=== PATIENT | female | born 1985 | race Caucasian/White ===

== ENCOUNTER 2016-06-20 09:24 | Emergency (ER) | payer OTHER ==
[~2016-06-20] VITALS: Ht 160 cm; Wt 77.5 kg
[~2016-06-20 09:24] MED LIST: ACET1TAB40 PO; ALBU18HF INHALATION; CEPH-443 PO; CIPR500T4 PO; CYCL-319 PO; D-ME473S18 PO; ESOM40CA PO; GUAI-637 PO; HOMATROPINE PO; HYDR-3498 PO; HYDROCODONE PO; IBUP-1542 PO; IBUP800T25 PO; NAPR-260 PO; NPH10OT LEFT EAR; OXYC-281 PO; SODI44SP11 NASAL; TAMS-14 PO; TRAM50TA2 PO
[2016-06-20 09:30] VITALS: Ht 160 cm; Wt 77.5 kg
[2016-06-20] MEDS ORDERED: AMO500 PO (09:47)
[2016-06-20] MEDS ORDERED: NAPR-688 PO (09:48)
[2016-06-20] MEDS ORDERED: CIPR7.5D4 LEFT EAR (09:48)
--- NOTE | 2016-06-20 09:55 | ERD ---
ER Documentation Chief Complaint Date/Time DATE: 06/20/16 TIME: 09:50 Chief Complaint LEFT EAR PAIN HPI This is a 30-year-old female presents to the ER with left ear pain that started yesterday. Pain is severe and constant and does not allow patient to sleep. Patient denies any discharge from the ER. She does admit to fever last night. She denies any cough or cold symptoms. She denies any recent dental work. She denies any facial pain or facial numbness or weakness. ROS 12 point review of systems was done, all negative except per HPI. Medications Home Meds Active Scripts Naproxen* (Naproxen*) 500 Mg Tablet, 500 MG PO BID Y for PAIN for 5 Days, TAB Prov:DARÍO BUENROSTRO 06/20/16 Ciprofloxacin Hcl/Dexameth (Ciprodex Otic Suspension) 7.5 Ml Drops.susp, 4 DROP LEFT EAR BID for 7 Days, EA Prov:DARÍO BUENROSTRO 06/20/16 Amoxicillin* (Amoxicillin*) 500 Mg Cap, 500 MG PO BID for 10 Days, CAP Prov:DARÍO BUENROSTRO 06/20/16 Dextromethorphan Hb-Promethazine Hcl (Promethazine DM Syrup) 473 Ml Syrup, 5 ML PO Q6H Y for COUGH, #4 OZ Prov:YORDY GRIGGS PA-C 03/03/16 Ibuprofen* (Motrin*) 600 Mg Tab, 600 MG PO Q6, #30 TAB Prov:YORDY GRIGGS PA-C 03/03/16 Ibuprofen* (Motrin*) 800 Mg Tab, 800 MG PO Q6H Y for PAIN, #30 TAB Prov:LUCILLE BOSE MD 12/19/15 [Hycodan 1.5mg/5mL] No Conflict Check, 5 ML PO Q6 Y for COUGH, #8 OZ Prov:LUCILLE BOSE MD 12/19/15 Albuterol Sulfate* (Ventolin HFA*) 18 Gm Hfa.aer.ad, 2 PUFF INHALATION Q4H, #1 INHALER Prov:LUCILLE BOSE MD 12/19/15 Cephalexin* (Keflex*) 500 Mg Capsule, 500 MG PO QID for 5 Days, CAP Prov:TREY STUART MD 10/20/15 Ibuprofen* (Motrin*) 600 Mg Tab, 600 MG PO Q6, #16 TAB Prov:TREY STUART MD 10/20/15 Cephalexin* (Keflex*) 500 Mg Capsule, 500 MG PO QID, #28 CAP Prov:TREY STUART MD 09/29/15 Acetaminophen-Codeine* (Acetaminophen-Cod #3*) 300-30 Mg Tab, 1 TAB PO Q4H Y for PAIN, #14 TAB Prov:TREY STUART MD 09/29/15 Neomycin/Polymyxin/Hydrocort* (Cortisporin* Otic) 10 Ml Susp, 4 DROP LEFT EAR QID for 7 Days, EA Prov:TREY STUART MD 09/29/15 Tramadol HCl (Tramadol HCl) 50 Mg Tablet, 50 MG PO Q4 Y for PAIN, #20 TAB Prov:RANDA BYNUM PA-C 09/16/15 Hydrocodone Bit-Acetaminophen* (Magnolia*) 5-325 Mg Tab, 1 TAB PO Q6 Y for PAIN, # 7 TAB Prov:YORDY GRIGGS PA-C 06/30/15 Ciprofloxacin Hcl* (Ciprofloxacin Hcl*) 500 Mg Tablet, 500 MG PO BID for 7 Days , TAB Prov:YORDY GRIGGS PA-C 06/30/15 Sodium Chloride (Saline Nasal Liberty) 45 Ml Liberty, 2 SPRAYS NASAL Q2H Y for NASAL CONGESTION, #1 BOTTLE Prov:CHAYO KEANE NP 04/29/15 Guaifenesin* (Robitussin*) 100 Mg/5 Ml Syrup, 100 MG PO Q4H Y for COUGH, #120 ML Prov:CHAYO KEANE NP 04/29/15 Cyclobenzaprine Hcl* (Cyclobenzaprine Hcl*) 10 Mg Tablet, 10 MG PO TID, #15 TAB Prov:CHAYO KEANE NP 04/29/15 Ibuprofen* (Motrin*) 800 Mg Tab, 800 MG PO Q6H Y for PAIN AND OR ELEVATED TEMP, #30 TAB Prov:CHAYO KEANE NP 04/29/15 Ibuprofen* (Motrin*) 600 Mg Tab, 600 MG PO Q6H Y for PAIN AND OR ELEVATED TEMP, #30 Prov:ELIO ZULUAGA 10/22/14 Cephalexin* (Keflex*) 500 Mg Capsule, 500 MG PO TID for 5 Days, CAP Prov:YEFRI ISRAEL PA-C 09/07/14 Tamsulosin Hcl* (Flomax*) 0.4 Mg Cap.er.24h, 0.4 MG PO QPM, #30 CAP Prov:YEFRI ISRAEL PA-C 09/07/14 Naproxen* (Naprosyn*) 500 Mg Tablet, 500 MG PO BID for PAIN, #30 TAB Prov:GIDEON JEFRFEY MD 09/05/14 Ciprofloxacin Hcl* (Ciprofloxacin Hcl*) 500 Mg Tablet, 500 MG PO BID for 5 Days , TAB Prov:GIDEON JEFFREY MD 09/05/14 Oxycodone Hcl-Acetaminophen* (Percocet*) 5-325 Mg Tablet, 1 TAB PO Q4H Y for PAIN, #14 TAB Prov:GIDEON JEFFREY MD 09/05/14 Reported Medications Esomeprazole Mag Trihydrate (Nexium) 40 Mg Capsule.dr, 40 MG PO DAILY, CAP 09/05/14 Allergies Allergies: Coded Allergies: No Known Allergy (Unverified , 12/19/15) PMhx/Soc History of Surgery: No Anesthesia Reaction: No Hx Neurological Disorder: No Hx Respiratory Disorders: No Hx Cardiac Disorders: No Hx Psychiatric Problems: No Hx Miscellaneous Medical Probl: No Hx Alcohol Use: No Hx Substance Use: No Hx Tobacco Use: No Physical Exam Vitals Vital Signs Date Time Temp Pulse Resp B/P Pulse Ox O2 Delivery O2 Flow Rate FiO2 06/20/16 09:30 98.2 79 18 147/97 98 Physical Exam GENERAL: The patient is well developed and appropriate for usual state of health , in no apparent distress. HEENT: Atraumatic. Conjunctivae are pink. Pupils equal, round, and reactive to light. Extraocular muscles are grossly intact. left external ear canal is erythematous. TTP over the tragus. The oropharynx is clear with no erythema or exudates. CHEST: Clear to auscultation bilaterally. There are no rales, wheezes or rhonchi. HEART: Regular rate and rhythm. No murmurs, clicks, rubs or gallops. NEURO: Alert and oriented. Results 24 hrs Current Medications Medications (Trade) Dose Ordered Sig/Carmelina Route PRN Reason Start Time Stop Time Status Last Admin Dose Admin Acetaminophen/ Hydrocodone Bitart (Magnolia (5/325)) 1 tab ONCE ONCE PO 06/20/16 10:00 06/20/16 10:01 06/20/16 09:49 Procedures/MDM This is a 30-year-old female presents to the ER with left ear pain. Patient may have otitis externa, external auditory canal is erythematous and patient had tender to palpation over the tragus. Suspicion for referred dental pain is low. I doubt TMJ patient did not have any facial pain I doubt trigeminal neuralgia. I doubt Dutton Palsy, she does not have any facial asymmetries. Patient will be sent home with Naproxen, Amoxicillin and Cortisporin. Patient needs to follow-up with her primary care doctor within 1-2 days or return to ER sooner if symptoms worsen. My medical decision making was shared with the patient she understands and agrees with plan. Departure Diagnosis: Primary Impression: Left ear pain Condition: Stable Patient Instructions: External Ear Infection (Adult) Additional Instructions: Llame al doctor EZ y evelyn david KENDALL PARA DENTRO DE 1-2 CARRION.Dgale a la secretaria que nosotros le instruimos hacer esta kendall.Avise o llame si salas condicin se empeora antes de la kendall. Regresa aqui si peor o no mejor. DARÍO BUENROSTRO Jun 20, 2016 09:55
[2016-06-20] MEDS ORDERED: HYDROCODONE/APAP (5/325) TAB PO ONE (10:00)
== END 2016-06-20 10:59 | disposition home or self-care (01) ==
LOC: FTE 09:24
DX: H92.02 Otalgia, left ear (principal)
CPT/HCPCS: Z7502; Z7610; 99283

== ENCOUNTER 2016-11-11 06:25 | Day surgery (SDC) | payer OTHER ==
[~2016-11-11] VITALS: Ht 160 cm; Wt 77.0 kg
[2016-11-11] VITALS (11 sets, daily range): BP systolic 127–168; BP diastolic 70–104; PULSE 68–108; RESP 14–20; Ht 160 cm; Wt 77.0 kg
[~2016-11-11 06:25] MED LIST changes: +AMO500 PO; +CIPR7.5D4 LEFT EAR; +NAPR-688 PO
[2016-11-11] MEDS ORDERED: DESFLURANE 15 MIN ONE (07:00)
[2016-11-11] MEDS ORDERED: SUCCINYLCHOLINE CHLORIDE 100 MG/5 ML SYG IV ONE (07:00)
[2016-11-11] MEDS ORDERED: SOD CHLORIDE 0.9% 1,000 ML IV SCH (07:30)
[2016-11-11] MEDS ORDERED: CEFAZOLIN 2 GM/50 ML (PMX) 50 ML IVPB ONE (07:30)
[2016-11-11] MEDS ORDERED: OMEP40CA6 PO (07:36)
[2016-11-11] MEDS ORDERED: BUPIVACAINE 0.25% (MPF) 30 ML INJ ONE ×2 (08:21→08:30)
[2016-11-11] MEDS ORDERED: PROPOFOL 20 ML ONE (09:06)
[2016-11-11] MEDS ORDERED: LIDOCAINE 1% (MDV) 20 ML INJ ONE (09:06)
[2016-11-11] MEDS ORDERED: FENTAnyl 50 MCG/ML VIAL ONE ×2 (09:06→09:58)
[2016-11-11] MEDS ORDERED: ROCURONIUM 50 MG INJ ONE (09:06)
[2016-11-11] MEDS ORDERED: MIDAZOLAM 1 MG/ML 2 ML INJ ONE (09:06)
[2016-11-11] MEDS ORDERED: ROPIVACAINE 0.2% 20 ML VIAL ONE (09:09)
[2016-11-11] MEDS ORDERED: CEFAZOLIN 1 GM INJ ONE (09:25)
[2016-11-11] MEDS ORDERED: FAMOTIDINE 20 MG INJ ONE (09:26)
[2016-11-11] MEDS ORDERED: DEXAMETHASONE 4 MG/ML 1 ML INJ ONE (09:26)
[2016-11-11] MEDS ORDERED: ONDANSETRON 4 MG INJ ONE (09:26)
[2016-11-11] MEDS ORDERED: SUGAMMADEX SODIUM 200 MG/2 ML VIAL IV ONE (09:46)
[2016-11-11] MEDS ORDERED: KETOROLAC 30 MG INJ ONE (09:47)
--- NOTE | 2016-11-11 09:54 | OPR ---
Date/Time of Note Date/Time of Note DATE: 11/11/16 TIME: 09:50 Operative Report Procedure Date: Nov 11, 2016 Preoperative Diagnosis symptomatic gallstones Postoperative Diagnosis same Operation Performed 1. laparoscopic cholecystectomy 2. therapeutic injection of subcutaneous marcaine cpt code [id number] Surgeon: Ziggy LAI Anesthesia Type: general Estimated Blood Loss: 0 - 10 ml's Specimens gallbladder Grafts/Implants: none Complications: no Indications This is a 31-year-old female with symptomatic gallstones. She required surgical excision of her gallbladder. Risks alternatives benefits and percent were discussed the patient. Patient expresses understanding and consents to the operation. Procedure Description Patient is taken to the OR and prepped and draped in usual sterile fashion. Surgical timeout was performed. IV antibiotics are given. Infraumbilical incision is made transversely with a 15 blade. Dissection cautery was carried down to the fascia. The fascia is divided with curved La scissors after being grasped with Montrose's. 0 Vicryl U stitch is placed into the fascia. Balloon Arreola trocar is introduced pneumoperitoneum is established. Midepigastric 12 mm optical trocar was placed under direct visualization. Right upper quadrant right upper flank 5 mm optical trochars were placed under direct visualization. Upon initial inspection there are some adhesions to the gallbladder which were taken down bluntly. The fundus of the gallbladder was grasped and retracted in the lateral and outward direction. Lateral dissection was started with Cook cautery. This allowed for identification of the cystic duct and cystic artery. The critical view was established. The cystic duct and cystic artery were divided with 3 clips proximal and due to the thickened tissue the distal division was performed with a 35 mm echelon vascular stapler. The gallbladder was taken of the gallbladder bed. There is good hemostasis. Gallbladder was retrieved using an Endo Catch bag. Minimal suction irrigation was used. Ports removed under direct visualization. 0 Vicryl U stitch was tied down. Skin was closed using skin sunita. Therapeutic subcutaneous Marcaine was injected to all port sites. Dry dressings were applied. Ziggy LAI Nov 11, 2016 09:54
[2016-11-11] MEDS ORDERED: HYDROCODONE/APAP (5/325) TAB PO ONE (10:00)
[2016-11-11] MEDS: HYDROmorphONE (0.2 MG/ML) 10ML SYG IV PRN ×5 (10:21→10:48)
[2016-11-11] MEDS ORDERED: MEPERIDINE 25 MG INJ IV PRN (10:30)
[2016-11-11] MEDS ORDERED: hydrALAzine 20 MG INJ IV PRN (10:30)
[2016-11-11] MEDS ORDERED: HYDROmorphONE (0.2 MG/ML) 10ML SYG IV PRN (10:30)
[2016-11-11] MEDS ORDERED: METOCLOPRAMIDE 10 MG INJ IV PRN (10:30)
[2016-11-11] MEDS ORDERED: DIPHENHYDRAMINE 50 MG INJ IV PRN (10:30)
[2016-11-11] MEDS ORDERED: ONDANSETRON 4 MG INJ IV PRN (10:30)
[2016-11-11] MEDS ORDERED: LORAZEPAM 2 MG INJ IV PRN (10:30)
== END 2016-11-11 15:00 | disposition home or self-care (01) ==
LOC: SDS 06:25
PROVIDERS: ATTEND Surgery
DX: K80.10 Calculus of gallbladder with chronic cholecystitis without obstruction (principal)
CPT/HCPCS: 47562; 84703; 88304; J0690; J1100; J1170; J1885; J2175; J2250; J2405; J2795; J3010; Z7512; Z7610; J7999

== ENCOUNTER 2017-01-09 09:56 | Emergency (ER) | payer OTHER ==
[~2017-01-09] VITALS: Ht 160 cm; Wt 78.0 kg
[~2017-01-09 09:56] MED LIST changes: -ACET1TAB40 PO; -ALBU18HF INHALATION; -AMO500 PO; -CEPH-443 PO; -CIPR500T4 PO; -CIPR7.5D4 LEFT EAR; -CYCL-319 PO; -D-ME473S18 PO; -ESOM40CA PO; -GUAI-637 PO; -HOMATROPINE PO; -HYDR-3498 PO; -HYDROCODONE PO; -IBUP-1542 PO; -IBUP800T25 PO; -NAPR-260 PO; -NAPR-688 PO; -NPH10OT LEFT EAR; +OMEP40CA6 PO; -OXYC-281 PO; -SODI44SP11 NASAL; -TAMS-14 PO; -TRAM50TA2 PO
[2017-01-09 09:59] VITALS: Ht 160 cm; Wt 78.0 kg
[2017-01-09] MEDS ORDERED: KETOROLAC 60 MG INJ IM STA (10:28)
--- NOTE | 2017-01-09 11:00 | ERD ---
ER Documentation Chief Complaint Chief Complaint ST X 1 WEEK HPI 31y/o female patient previously healthy presents to the emergency department c/o 3 days with progressive onset of acute respiratory symptoms including: left ear pain, runny nose, sore throat, headache and general malaise. The patient has been taking OTC with mild relief of her symptoms. Denies fever, chills, SOB, no chest pain or palpitations ROS SYSTEMIC symptoms: No fever, no chills, no night sweats EYE symptoms: No eyesight problems. OTOLARYNGEAL symptoms: No hearing loss. CARDIOVASCULAR symptoms: No chest pain or discomfort, no palpitations. PULMONARY symptoms: No dyspnea, no cough, no wheezing. GASTROINTESTINAL symptoms: No abdominal pain, no nausea, no vomiting SKIN no rashes MUSCULOSKELETAL symptoms: No arthralgias, no muscle aches. NEUROLOGY symptoms: No confusion, no syncope, no numbness or tingling. All systems reviewed and are negative except as per history of present illness. Medications Home Meds Reported Medications Omeprazole* (Omeprazole*) 40 Mg Capsule.dr, 40 MG PO DAILY, #30 CAP 11/11/16 Allergies Allergies: Coded Allergies: No Known Allergy (Unverified , 11/11/16) PMhx/Soc History of Surgery: No Anesthesia Reaction: No Hx Neurological Disorder: No Hx Respiratory Disorders: No Hx Cardiac Disorders: No Hx Psychiatric Problems: No Hx Miscellaneous Medical Probl: No Hx Alcohol Use: No Hx Substance Use: No Hx Tobacco Use: No Physical Exam Vitals Vital Signs Date Time Temp Pulse Resp B/P Pulse Ox O2 Delivery O2 Flow Rate FiO2 01/09/17 09:59 98.1 90 18 140/90 99 Physical Exam Patient is in no acute distress, vital signs stable. Alert and fully oriented. EYES: PERRLA, EOMI, Sclera and conjunctiva appear normal. EARS: Canals clear, left ear: tympanic membrane erythematous,opaque, with middle ear effusion THROAT: erythematous oropharynx. NECK: Supple, No lymphadenopathy. Full ROM without pain or tenderness. HEART: RRR, no rubs, murmurs, clicks or gallops. LUNGS: Clear to auscultation. ABDOMEN: Soft, non-tender without masses or hepatosplenomegaly. EXTREMITIES: No edema bilaterally. MUSC: Full ROM, no deformity, normal back exam Results 24 hrs Current Medications Medications (Trade) Dose Ordered Sig/Carmelina Route PRN Reason Start Time Stop Time Status Last Admin Dose Admin Ketorolac Tromethamine (Toradol) 60 mg ONCE STAT IM 01/09/17 10:28 01/09/17 10:31 DC 01/09/17 10:45 Procedures/MDM 31-year-old female, previously healthy, presents with left ear pain and sore throat. Physical exam revealed erythematous oropharynx, with left ear effusion. Rapid strep test was positive. The patient received Toradol here in the ER, presenting improvement of the pain. The patient will be discharged home with a prescription for amoxicillin for 10 days and pain medication. The patient should follow-up with her primary doctor in 2-4 days. Departure Diagnosis: Primary Impression: Left otitis media with effusion Additional Impression: Strep pharyngitis Condition: Stable Patient Instructions: Pharyngitis, Strep (Confirmed) Additional Instructions: Muchas ian por [facility] para salas servicio. Esperamos que en salas visita a la terrell de emergencia salas problema medico haya sido solucionado y que se sienta mucho mejor. Para estar seguros que salas mejoria sigue en proceso, le pedimos el favor de hacer david thomas de seguimiento medico con salas doctor primario en los proximos 2-4 mayen. Lleve con usted estos documentos y las medicinas recetadas. Si jinny sintomas empeoran y no puede ric a salas doctor, por favor regrese a terrell de emergencia. ALFARO-SERAFIN PRIETO MD Jan 09, 2017 11:00
[2017-01-09] MEDS ORDERED: IBUP-1542 PO (11:37)
[2017-01-09] MEDS ORDERED: AMOX500C2 PO (11:37)
[2017-01-09] MEDS ORDERED: NPH10OT LEFT EAR (11:41)
== END 2017-01-09 11:46 | disposition home or self-care (01) ==
LOC: FTE 09:56
DX: H65.92 Unspecified nonsuppurative otitis media, left ear (principal); J02.0 Streptococcal pharyngitis
CPT/HCPCS: 87880; 96372; J1885; Z7502

== ENCOUNTER 2017-06-21 15:40 | Emergency (ER) | END 2017-06-21 16:00 | disposition home or self-care (01) ==

== ENCOUNTER 2017-07-08 05:21 | Emergency (ER) | END 2017-07-08 08:04 | disposition home or self-care (01) ==

== ENCOUNTER 2017-11-06 11:32 | Emergency (ER) | END 2017-11-06 14:02 | disposition home or self-care (01) ==

== ENCOUNTER 2018-05-28 12:35 | Emergency (ER) | payer OTHER ==
[~2018-05-28] VITALS: Wt 80.2 kg
[~2018-05-28 12:35] MED LIST changes: +AMOX1TAB10 PO; +AMOX500C2 PO; +AZIT250T PO; +GUAI-173 PO; +IBUP-1542 PO; +IBUP800T48 PO; +NPH10OT LEFT EAR
[2018-05-28 12:38] VITALS: BP 128/73; PULSE 97; RESP 17
[2018-05-28] MEDS ORDERED: AZIT250T PO (13:56)
[2018-05-28] MEDS ORDERED: IBUP-1542 PO (13:56)
[2018-05-28] MEDS ORDERED: D-ME473S2 PO (13:56)
--- NOTE | 2018-05-28 13:59 | ERD ---
ER Documentation Chief Complaint Chief Complaint COUGH, CONGESTION, THROAT PAIN, ONSET 3 DAYS HPI 32-year-old female presents with productive cough, fever, pleuritic anterior chest pain. She denies sustained chest pain, abdominal pain, urinary complaints. ROS All systems reviewed and are negative except as per history of present illness. Medications Home Meds Active Scripts Azithromycin* (Zithromax*) 250 Mg Tablet, 250 MG PO .ZPACK DIRECTED, #6 TAB TAKE 500 MG (2 TABS) THE FIRST DAY THEN 250 MG (1 TAB) DAYS 2-5 Prov:TREY STUART MD 05/28/18 Dextromethorphan Hb-Promethazine Hcl* (Promethazine DM* Syrup) 473 Ml Syrup, 5 ML PO Q6 PRN for COUGH for 5 Days, ML Prov:TREY STUART MD 05/28/18 Ibuprofen* (Motrin*) 600 Mg Tab, 600 MG PO Q6, #20 TAB Prov:TREY STUART MD 05/28/18 Ibuprofen* (Motrin*) 600 Mg Tab, 600 MG PO Q6H PRN for PAIN, #30 TAB Prov:RENNY BLANTON DO 11/06/17 Ibuprofen* (Motrin*) 800 Mg Tab, 800 MG PO Q6, #30 TAB Prov:BEBE CASTELLANO PA-C 07/08/17 Amoxicillin/Potassium Clav (Amox-Clav 875-125 mg Tablet) 875-125 mg Tab, 1 TAB PO BID for 7 Days, #14 TAB Prov:BEBE CASTELLANO PA-C 07/08/17 Guaifenesin* (Tussin*) 100 Mg/5 Ml Syrup, 200 MG PO Q6 PRN for COUGH for 3 Days, ML Prov:DARÍO BUENROSTRO 06/21/17 Azithromycin* (Zithromax*) 250 Mg Tablet, 250 MG PO .ZPACK DIRECTED, #6 TAB TAKE 500 MG (2 TABS) THE FIRST DAY THEN 250 MG (1 TAB) DAYS 2-5 Prov:DARÍO BUENROSTRO 06/21/17 Amoxicillin* (Amoxicillin*) 500 Mg Cap, 500 MG PO BID for 5 Days, CAP Prov:DARÍO BUENROSTRO 06/21/17 Ibuprofen* (Motrin*) 600 Mg Tab, 600 MG PO Q6, #30 TAB Prov:DARÍO BUENROSTRO C 06/21/17 Neomycin/Polymyxin/Hydrocort* (Cortisporin* Otic) 10 Ml Susp, 4 DROP LEFT EAR QID for 7 Days, EA Prov:SERAFIN RICHARDS MD 01/09/17 Ibuprofen* (Motrin*) 600 Mg Tab, 600 MG PO Q8 for 5 Days, #15 TAB Prov:SERAFIN RICHARDS MD 01/09/17 Amoxicillin* (Amoxicillin*) 500 Mg Cap, 500 MG PO TID for 10 Days, CAP Prov:SERAFIN RICHARDS MD 01/09/17 Reported Medications Omeprazole* (Omeprazole*) 40 Mg Capsule.dr, 40 MG PO DAILY, #30 CAP 11/11/16 Allergies Allergies: Coded Allergies: No Known Allergy (Unverified , 11/06/17) PMhx/Soc History of Surgery: Yes (cholecystectomy) Anesthesia Reaction: No Hx Neurological Disorder: No Hx Respiratory Disorders: No Hx Cardiac Disorders: No Hx Psychiatric Problems: No Hx Miscellaneous Medical Probl: No Hx Alcohol Use: No Hx Substance Use: No Hx Tobacco Use: No Physical Exam Vitals Vital Signs Date Temp Pulse Resp B/P (MAP) Pulse Ox O2 O2 Flow FiO2 Time Delivery Rate 05/28/18 98.2 97 17 128/73 100 12:38 (91) Physical Exam Const: No acute distress Head: Atraumatic Eyes: Normal Conjunctiva ENT: Normal External Ears, Nose and Mouth. TMs and oropharynx normal. Neck: Full range of motion. No meningismus. Resp: Clear to auscultation bilaterally rhonchi without rales, wheezing or retractions. Cardio: Regular rate and rhythm, no murmurs Abd: Soft, non tender, non distended. Normal bowel sounds Skin: No petechiae or rashes Back: No midline or flank tenderness Ext: No cyanosis, or edema Neur: Awake and alert Psych: Normal Mood and Affect Procedures/MDM Patient presents with URI symptoms of productive cough for last 4 days. She has notes of hypoxemia, rest or stress, signs of cardiac chest pain, pain appears to be anterior and pleuritic likely due to cough. She will be treated with Zithromax, promethazine, ibuprofen Follow-up and return precautions. The patient was stable with no new complaints during the ER course. Clinically, there is no current evidence to suggest meningitis, sepsis, acute abdomen, pneumonia, stroke, acute coronary syndrome, pulmonary embolism, aortic dissection or any other emergent condition appearing to require further evaluation or hospitalization. Patient counseled regarding my diagnostic impression and care plan. Prior to discharge all questions answered. Pt agrees with treatment plan and understands strict return precautions. Pt is instructed to follow up with primary care provider within 24- 48 hours. Precautionary instructions provided including instructions to return to the ER if not improving or for any worsening or changing symptoms or concerns. Departure Diagnosis: Primary Impression: Upper respiratory infection URI type: unspecified URI Qualified Codes: J06.9 - Acute upper respiratory infection, unspecified Condition: Stable Patient Instructions: Bronchitis, Antiobiotic Treatment (Adult) Referrals: DOCTOR,NOT ON STAFF (PCP) Additional Instructions: Cheque otro vez con salas doctor primario en el proximo mayen or regresa para mas o nueva simptomas. TREY STUART MD May 28, 2018 13:58
== END 2018-05-28 14:13 | disposition home or self-care (01) ==
LOC: FTE 12:35
DX: J06.9 Acute upper respiratory infection, unspecified (principal)
CPT/HCPCS: 99283

== ENCOUNTER 2018-08-18 20:24 | Emergency (ER) | payer OTHER ==
[~2018-08-18] VITALS: Ht 162.6 cm; Wt 81.8 kg
[~2018-08-18 20:24] MED LIST changes: +D-ME473S2 PO
[2018-08-18 20:34] VITALS: Ht 162.6 cm; Wt 81.8 kg
--- NOTE | 2018-08-18 22:09 | ERD ---
ER Documentation Chief Complaint Chief Complaint heavy menstrual period x 1 week, c/o pelvic pain HPI 33-year-old female with past medical history of heavy menstrual periods who presents with complaint of heavy menstruation over the past 7 days. Also with complaint of dull pelvic pain. Patient recently diagnosed to 3 weeks ago with a large ovarian cyst. Patient has COLUMNIST but has not been informed of any follow- up required after ultrasonographic findings. She now presents as she is concerned about her heavy period. Has had intermittent dizziness but otherwise denies chest pain, shortness of breath, dyspnea, nausea, vomiting, diarrhea abdominal pain, urinary symptoms. States she was on a hormone pill in the past but is on sure the name of medication but no longer on any medications such as OCPs or iron supplementation. She otherwise is without complaint and at the time examination nontoxic-appearing and hemodynamically stable. ROS All systems reviewed and are negative except as per history of present illness. Medications Home Meds Active Scripts Medroxyprogesterone Acetate* (Provera*) 10 Mg Tablet, 10 MG PO DAILY for 7 Days, TAB Prov:ANDRÉS PEÑALOZA-C 08/18/18 Naproxen* (Naprosyn*) 500 Mg Tablet, 500 MG PO BID PRN for PAIN AND/OR INFLAMMATION, #30 TAB Prov:ANDRÉS PEÑALOZA-C 08/18/18 Ibuprofen* (Motrin*) 600 Mg Tab, 600 MG PO Q6, #30 TAB Prov:ANDRÉS PEÑALOZA PA-C 08/18/18 Azithromycin* (Zithromax*) 250 Mg Tablet, 250 MG PO .MarbellaPACK DIRECTED, #6 TAB TAKE 500 MG (2 TABS) THE FIRST DAY THEN 250 MG (1 TAB) DAYS 2-5 Prov:TREY STUART MD 05/28/18 Dextromethorphan Hb-Promethazine Hcl* (Promethazine DM* Syrup) 473 Ml Syrup, 5 ML PO Q6 PRN for COUGH for 5 Days, ML Prov:TREY STUART MD 05/28/18 Ibuprofen* (Motrin*) 600 Mg Tab, 600 MG PO Q6, #20 TAB Prov:TREY STUART MD 05/28/18 Ibuprofen* (Motrin*) 600 Mg Tab, 600 MG PO Q6H PRN for PAIN, #30 TAB Prov:RENNY BLANTON DO 11/06/17 Ibuprofen* (Motrin*) 800 Mg Tab, 800 MG PO Q6, #30 TAB Prov:BEBE CASTELLANO PA-C 07/08/17 Amoxicillin/Potassium Clav (Amox-Clav 875-125 mg Tablet) 875-125 mg Tab, 1 TAB PO BID for 7 Days, #14 TAB Prov:BEBE CASTELLANO PA-C 07/08/17 Guaifenesin* (Tussin*) 100 Mg/5 Ml Syrup, 200 MG PO Q6 PRN for COUGH for 3 Days, ML Prov:DARÍO BUENROSTRO 06/21/17 Azithromycin* (Zithromax*) 250 Mg Tablet, 250 MG PO .COURTNEY DIRECTED, #6 TAB TAKE 500 MG (2 TABS) THE FIRST DAY THEN 250 MG (1 TAB) DAYS 2-5 Prov:DARÍO BUENROSTRO 06/21/17 Amoxicillin* (Amoxicillin*) 500 Mg Cap, 500 MG PO BID for 5 Days, CAP Prov:DARÍO BUENROSTRO 06/21/17 Ibuprofen* (Motrin*) 600 Mg Tab, 600 MG PO Q6, #30 TAB Prov:DARÍO BUENROSTRO 06/21/17 Neomycin/Polymyxin/Hydrocort* (Cortisporin* Otic) 10 Ml Susp, 4 DROP LEFT EAR QID for 7 Days, EA Prov:SERAFIN RICHARDS MD 01/09/17 Ibuprofen* (Motrin*) 600 Mg Tab, 600 MG PO Q8 for 5 Days, #15 TAB Prov:SERAFIN RICHARDS MD 01/09/17 Amoxicillin* (Amoxicillin*) 500 Mg Cap, 500 MG PO TID for 10 Days, CAP Prov:SERAFIN RICHARDS MD 01/09/17 Reported Medications Omeprazole* (Omeprazole*) 40 Mg Capsule.dr, 40 MG PO DAILY, #30 CAP 11/11/16 Allergies Allergies: Coded Allergies: No Known Allergy (Unverified , 11/06/17) PMhx/Soc History of Surgery: Yes (cholecystectomy) Anesthesia Reaction: No Hx Neurological Disorder: No Hx Respiratory Disorders: No Hx Cardiac Disorders: No Hx Psychiatric Problems: No Hx Miscellaneous Medical Probl: No Hx Alcohol Use: No Hx Substance Use: No Hx Tobacco Use: No Smoking Status: Never smoker FmHx Family History: No diabetes, No coronary disease, No other Physical Exam Vitals Vital Signs Date Temp Pulse Resp B/P (MAP) Pulse Ox O2 O2 Flow FiO2 Time Delivery Rate 08/18/18 99.1 102 20 155/86 98 20:34 (109) Physical Exam I have reviewed the triage vital signs. Const: Well nourished, well developed, appears stated age Eyes: PERRL, no conjunctival injection HENT: NCAT, Neck supple without meningismus CV: RRR, Warm, well-perfused extremities RESP: CTAB, Unlabored respiratory effort GI: soft, non-tender, non-distended, no masses MSK: No gross deformities appreciated Skin: Warm, dry. No rashes Neuro: grossly non focal Psych: Appropriate mood and affect. Result Diagram: 08/18/18225208/18/182252 Results 24 hrs Laboratory Tests Test 08/18/18 21:53 08/18/18 21:56 08/18/18 22:53 Urine Color YELLOW Urine Clarity SLIGHTLY CLOUDY Urine pH 5.0 Urine Specific [place] 1.021 Urine Ketones NEGATIVE mg/dL Urine Nitrite NEGATIVE mg/dL Urine Bilirubin NEGATIVE mg/dL Urine Urobilinogen NEGATIVE mg/dL Urine Leukocyte Esterase NEGATIVE Maury/ul Urine Microscopic RBC > 182 /HPF Urine Microscopic WBC 11 /HPF Urine Squamous Epithelial Cells FEW /HPF Urine Hemoglobin 3+ mg/dL Urine Glucose NEGATIVE mg/dL Urine Total Protein NEGATIVE mg/dl POC Beta HCG, Qualitative NEGATIVE White Blood Count 13.0 10^3/ul Red Blood Count 4.33 10^6/ul Hemoglobin 8.4 g/dl Hematocrit 29.9 % Mean Corpuscular Volume 69.1 fl Mean Corpuscular Hemoglobin 19.4 pg Mean Corpuscular 28.1 g/dl Hemoglobin Concent Red Cell Distribution Width 17.9 % Platelet Count 400 10^3/UL Mean Platelet Volume 11.1 fl Immature Granulocytes % 0.700 % Neutrophils % 61.5 % Lymphocytes % 27.8 % Monocytes % 6.5 % Eosinophils % 2.9 % Basophils % 0.6 % Nucleated Red Blood Cells % 0.0 /100WBC Immature Granulocytes # 0.090 10^3/ul Neutrophils # 8.0 10^3/ul Lymphocytes # 3.6 10^3/ul Monocytes # 0.8 10^3/ul Eosinophils # 0.4 10^3/ul Basophils # 0.1 10^3/ul Nucleated Red Blood Cells # 0.0 10^3/ul Sodium Level 139 mmol/L Potassium Level 3.8 mmol/L Chloride Level 105 mmol/L Carbon Dioxide Level 24 mmol/L Anion Gap 10 Blood Urea Nitrogen 17 mg/dl Creatinine 0.80 mg/dl Est Glomerular Filtrat > 60 mL/min Rate mL/min Glucose Level 108 mg/dl Calcium Level 9.1 mg/dl Total Bilirubin 0.4 mg/dl Direct Bilirubin 0.00 mg/dl Indirect Bilirubin 0.4 mg/dl Aspartate Amino 25 IU/L Transf (AST/SGOT) Alanine 21 IU/L Aminotransferase (ALT/SGPT) Alkaline Phosphatase 97 IU/L Total Protein 8.0 g/dl Albumin 4.6 g/dl Globulin 3.40 g/dl Albumin/Globulin Ratio 1.35 Current Medications Medications Dose Sig/Carmelina Start Time Status Last (Trade) Ordered Route PRN Stop Time Admin Dose Reason Admin 150 mg ONCE ONCE 08/18/18 DC 08/18/18 Medroxyproges IM 22:30 22:55 terone 08/18/18 22:31 Acetate (Depo-Provera ) Procedures/MDM 33-year-old female presents with complaint of heavy menstruation. ED course: Ultrasound with small 1.4 cm ovarian cyst, no other acute findings Hemoglobin 8.4 hematocrit 29 UA unremarkable Patient given single dose 150 IM medroxyprogesterone, will discharge with 10-day course of Provera Patient previously on iron supplementation but states she does not want to be on iron supplements at this time and will follow up with her [employer] specialist DISPOSITION PLAN: We discussed follow up with the patient's primary care doctor within 24 to 48 hours. Patient counseled regarding my diagnostic impression and care plan. Prior to discharge all questions answered. Pt agrees with treatment plan and understands strict return precautions. Precautionary instructions provided including instructions to return to the ER if not improving or for any worsening or changing symptoms or concerns. Disclaimer: Inadvertent spelling and grammatical errors are likely due to EHR/dictation software use and do not reflect on the overall quality of patient care. Also, please note that the electronic time recorded on this note does not necessarily reflect the actual time of the patient encounter. Departure Condition: Stable JEUDINE,GETHO PA-C August 18, 2018 22:09
[2018-08-18] MEDS ORDERED: MEDROXYPROGESTERONE 150 MG INJ SYG IM ONE (22:30)
[2018-08-18] MEDS ORDERED: NAPR-985 PO (23:49)
[2018-08-18] MEDS ORDERED: MEDR10TA2 PO (23:49)
[2018-08-18] MEDS ORDERED: IBUP-1542 PO (23:49)
[2018-08-19] MEDS ORDERED: MEDR10TA2 PO (00:03)
[2018-08-19 00:10] VITALS: BP 138/77; PULSE 82; RESP 20
== END 2018-08-19 00:11 | disposition home or self-care (01) ==
LOC: FTE 20:24
DX: N92.0 Excessive and frequent menstruation with regular cycle (principal); R10.2 Pelvic and perineal pain
CPT/HCPCS: 76856; 80053; 81001; 81025; 85025; 96372; J1050; Z7502

== ENCOUNTER 2018-08-28 13:58 | Emergency (ER) | payer OTHER ==
[~2018-08-28] VITALS: Ht 160 cm; Wt 80.5 kg
[~2018-08-28 13:58] MED LIST changes: +MEDR10TA2 PO; +NAPR-985 PO
[2018-08-28 14:14] VITALS: BP 136/69; PULSE 88; RESP 18; Ht 160 cm; Wt 80.5 kg
[2018-08-28] MEDS ORDERED: PSEU-79 PO (15:29)
[2018-08-28] MEDS ORDERED: BENZ-6 PO (15:29)
[2018-08-28] MEDS ORDERED: NAPR-985 PO (15:29)
[2018-08-28] MEDS ORDERED: PROM6.2515 PO (15:29)
--- NOTE | 2018-08-28 15:38 | ERD ---
ER Documentation Chief Complaint Chief Complaint sorethroat & ear ache x5 days HPI 33-year-old female presenting with a sore throat and earache x5 days. Patient has no fevers and has not taken medications for symptoms. Patient has a runny nose and a cough. Denies abdominal pain. Denies vomiting. Denies other me dical problems. NKDA. Surgical history denies. Social history denies ROS All systems reviewed and are negative except as per history of present illness. Medications Home Meds Active Scripts Naproxen* (Naprosyn*) 500 Mg Tablet, 500 MG PO BID PRN for PAIN AND/OR INFLAMMATION, #30 TAB Prov:BEBE CASTELLANO-C 08/28/18 Pseudoephedrine Hcl* (Suphedrin*) 30 Mg Tablet, 30 MG PO Q6 PRN for CONGESTION, #30 TAB Prov:BEBE CASTELLANO-C 08/28/18 Promethazine Hcl* (Promethazine Hcl* Syrup) 6.25 Mg/5 Ml Syrup, 6.25 MG PO Q6H PRN for COUGH, #100 ML Prov:BEBE CASTELLANO-C 08/28/18 Benzonatate* (Tessalon Perle*) 100 Mg Capsule, 100 MG PO Q8H PRN for COUGH, #30 CAP Prov:BEBE CASTELLANO-C 08/28/18 Medroxyprogesterone Acetate* (Provera*) 10 Mg Tablet, 10 MG PO DAILY for 14 Days, TAB Prov:ANDRÉS PEÑALOZA-C 08/19/18 Naproxen* (Naprosyn*) 500 Mg Tablet, 500 MG PO BID PRN for PAIN AND/OR INFLAMMATION, #30 TAB Prov:ANDRÉS PEÑALOZA PA-C 08/18/18 Ibuprofen* (Motrin*) 600 Mg Tab, 600 MG PO Q6, #30 TAB Prov:ANDRÉS PEÑALOZA PA-C 08/18/18 Azithromycin* (Zithromax*) 250 Mg Tablet, 250 MG PO .MarbellaPACK DIRECTED, #6 TAB TAKE 500 MG (2 TABS) THE FIRST DAY THEN 250 MG (1 TAB) DAYS 2-5 Prov:TREY STUART MD 05/28/18 Dextromethorphan Hb-Promethazine Hcl* (Promethazine DM* Syrup) 473 Ml Syrup, 5 ML PO Q6 PRN for COUGH for 5 Days, ML Prov:TREY STUART MD 05/28/18 Ibuprofen* (Motrin*) 600 Mg Tab, 600 MG PO Q6, #20 TAB Prov:TREY STUART MD 05/28/18 Ibuprofen* (Motrin*) 600 Mg Tab, 600 MG PO Q6H PRN for PAIN, #30 TAB Prov:RENNY BLANTON DO 11/06/17 Ibuprofen* (Motrin*) 800 Mg Tab, 800 MG PO Q6, #30 TAB Prov:BEBE CASTELLANO PA-C 07/08/17 Amoxicillin/Potassium Clav (Amox-Clav 875-125 mg Tablet) 875-125 mg Tab, 1 TAB PO BID for 7 Days, #14 TAB Prov:BEBE CASTELLANO PA-C 07/08/17 Guaifenesin* (Tussin*) 100 Mg/5 Ml Syrup, 200 MG PO Q6 PRN for COUGH for 3 Days, ML Prov:DARÍO BUENROSTRO 06/21/17 Azithromycin* (Zithromax*) 250 Mg Tablet, 250 MG PO .COURTNEY DIRECTED, #6 TAB TAKE 500 MG (2 TABS) THE FIRST DAY THEN 250 MG (1 TAB) DAYS 2-5 Prov:DARÍO BUENROSTRO 06/21/17 Amoxicillin* (Amoxicillin*) 500 Mg Cap, 500 MG PO BID for 5 Days, CAP Prov:DARÍO BUENROSTRO 06/21/17 Ibuprofen* (Motrin*) 600 Mg Tab, 600 MG PO Q6, #30 TAB Prov:DARÍO BUENROSTRO 06/21/17 Neomycin/Polymyxin/Hydrocort* (Cortisporin* Otic) 10 Ml Susp, 4 DROP LEFT EAR QID for 7 Days, EA Prov:SERAFIN RICHARDS MD 01/09/17 Ibuprofen* (Motrin*) 600 Mg Tab, 600 MG PO Q8 for 5 Days, #15 TAB Prov:SERAFIN RICHARDS MD 01/09/17 Amoxicillin* (Amoxicillin*) 500 Mg Cap, 500 MG PO TID for 10 Days, CAP Prov:SERAFIN RICHARDS MD 01/09/17 Reported Medications Omeprazole* (Omeprazole*) 40 Mg Capsule., 40 MG PO DAILY, #30 CAP 11/11/16 Allergies Allergies: Coded Allergies: No Known Allergy (Unverified , 11/06/17) PMhx/Soc History of Surgery: Yes (cholecystectomy) Anesthesia Reaction: No Hx Neurological Disorder: No Hx Respiratory Disorders: No Hx Cardiac Disorders: No Hx Psychiatric Problems: No Hx Miscellaneous Medical Probl: No Hx Alcohol Use: No Hx Substance Use: No Hx Tobacco Use: No FmHx Family History: No diabetes, No coronary disease, No other Physical Exam Vitals Vital Signs Date Temp Pulse Resp B/P (MAP) Pulse Ox O2 O2 Flow FiO2 Time Delivery Rate 08/28/18 99.0 88 18 136/69 100 14:14 (91) Physical Exam GENERAL: The patient is well-appearing, well-nourished, in no acute distress HEENT: Atraumatic. Conjunctivae are pink. Pupils equal, round, and reactive to light. There is no scleral icterus. Tympanic membranes clear bilaterally. Oropharynx clear. CHEST: Clear to auscultation bilaterally. There are no rales, wheezes or rhonchi. HEART: Regular rate and rhythm. No murmurs, clicks, rubs or gallops. Procedures/MDM MDM: 33-year-old female presenting with a sore throat and ear pain. Patient has congestion. Patient has viral URI symptoms and her antibiotics. Patient is discharged with strict ER precautions. All questions answered at discharge Departure Diagnosis: Primary Impression: URI, acute Condition: Stable Patient Instructions: Uri, Viral, No Abx (Adult) Referrals: [facility] YOU HAVE RECEIVED A MEDICAL SCREENING EXAM AND THE RESULTS INDICATE THAT YOU DO NOT HAVE A CONDITION THAT REQUIRES URGENT TREATMENT IN THE EMERGENCY DEPARTMENT. FURTHER EVALUATION AND TREATMENT OF YOUR CONDITION CAN WAIT UNTIL YOU ARE SEEN IN YOUR DOCTORS OFFICE WITHIN THE NEXT 1-2 DAYS. IT IS YOUR RESPONSIBILITY TO MAKE AN APPOINTMENT FOR FOLOW-UP CARE. IF YOU HAVE A PRIMARY DOCTOR --you should call your primary doctor and schedule an appointment IF YOU DO NOT HAVE A PRIMARY DOCTOR YOU CAN CALL OUR PHYSICIAN REFERRAL HOTLINE AT IF YOU CAN NOT AFFORD TO SEE A PHYSICIAN YOU CAN CHOSE FROM THE FOLLOWING [facility] [address] [facility] [address] [facility] [address] [facility] [address] [facility] [address] [facility]. [facility] [address] Additional Instructions: FOLLOW UP WITH YOUR PRIMARY CARE PHYSICIAN TOMORROW.Return to this facility if you are not improving as expected. BEBE CASTELLANO PA-C Aug 28, 2018 15:38
== END 2018-08-28 15:48 | disposition home or self-care (01) ==
LOC: FTE 13:58
DX: J06.9 Acute upper respiratory infection, unspecified (principal)
CPT/HCPCS: 99282

== ENCOUNTER 2018-10-29 12:14 | Emergency (ER) | payer OTHER ==
[~2018-10-29] VITALS: Ht 160 cm; Wt 83.6 kg
[~2018-10-29 12:14] MED LIST changes: +BENZ-6 PO; +FER325 PO; +LORA-441 PO; +PROM6.2515 PO; +PSEU-79 PO
[2018-10-29 12:19] VITALS: BP 148/93; PULSE 90; RESP 18; Ht 160 cm; Wt 83.6 kg
--- NOTE | 2018-10-29 13:47 | ERD ---
ER Documentation Chief Complaint Chief Complaint vag bleed x 2 months HPI 33-year-old female, presents to the emergency department, complaining of intermittent, irregular vaginal bleeding for 2 months. The patient is in treatment for hypothyroidism, she denies fever, no chills, no pelvic pain, no vaginal discharge, she is G0, P0. ROS All systems reviewed and are negative except as per history of present illness. Medications Home Meds Active Scripts Lorazepam* (Ativan*) 0.5 Mg Tablet, 0.5 MG PO Q8H PRN for ANXIETY, #15 TAB Prov:SERAFIN RICHARDS MD 10/29/18 Ferrous Sulfate* (Ferrous Sulfate*) 325 Mg Tabec, 325 MG PO BID, #60 TAB Prov:SERAFIN RICHARDS MD 10/29/18 Naproxen* (Naprosyn*) 500 Mg Tablet, 500 MG PO BID PRN for PAIN AND/OR INFLAMMATION, #30 TAB Prov:BEBE CASTELLANO PA-C 08/28/18 Pseudoephedrine Hcl* (Suphedrin*) 30 Mg Tablet, 30 MG PO Q6 PRN for CONGESTION, #30 TAB Prov:BEBE CASTELLANO PA-C 08/28/18 Promethazine Hcl* (Promethazine Hcl* Syrup) 6.25 Mg/5 Ml Syrup, 6.25 MG PO Q6H PRN for COUGH, #100 ML Prov:BEBE CASTELLANO PA-C 08/28/18 Benzonatate* (Tessalon Perle*) 100 Mg Capsule, 100 MG PO Q8H PRN for COUGH, #30 CAP Prov:BEBE CASTELLANO PA-C 08/28/18 Medroxyprogesterone Acetate* (Provera*) 10 Mg Tablet, 10 MG PO DAILY for 14 Days, TAB Prov:ANDRÉS PEÑALOZA PA-C 08/19/18 Naproxen* (Naprosyn*) 500 Mg Tablet, 500 MG PO BID PRN for PAIN AND/OR INFLAMMATION, #30 TAB Prov:ANDRÉS PEÑALOZA-C 08/18/18 Ibuprofen* (Motrin*) 600 Mg Tab, 600 MG PO Q6, #30 TAB Prov:ANDRÉS PEÑALOZA-C 08/18/18 Azithromycin* (Zithromax*) 250 Mg Tablet, 250 MG PO .ZPACK DIRECTED, #6 TAB TAKE 500 MG (2 TABS) THE FIRST DAY THEN 250 MG (1 TAB) DAYS 2-5 Prov:TREY STUART MD 05/28/18 Dextromethorphan Hb-Promethazine Hcl* (Promethazine DM* Syrup) 473 Ml Syrup, 5 ML PO Q6 PRN for COUGH for 5 Days, ML Prov:TREY STUART MD 05/28/18 Ibuprofen* (Motrin*) 600 Mg Tab, 600 MG PO Q6, #20 TAB Prov:TREY STUART MD 05/28/18 Ibuprofen* (Motrin*) 600 Mg Tab, 600 MG PO Q6H PRN for PAIN, #30 TAB Prov:RENNY BLANTON DO 11/06/17 Ibuprofen* (Motrin*) 800 Mg Tab, 800 MG PO Q6, #30 TAB Prov:BEBE CASTELLANO PA-C 07/08/17 Amoxicillin/Potassium Clav (Amox-Clav 875-125 mg Tablet) 875-125 mg Tab, 1 TAB PO BID for 7 Days, #14 TAB Prov:BEBE CASTELLANO PA-C 07/08/17 Guaifenesin* (Tussin*) 100 Mg/5 Ml Syrup, 200 MG PO Q6 PRN for COUGH for 3 Days, ML Prov:DARÍO BUENROSTRO 06/21/17 Azithromycin* (Zithromax*) 250 Mg Tablet, 250 MG PO .ZPACK DIRECTED, #6 TAB TAKE 500 MG (2 TABS) THE FIRST DAY THEN 250 MG (1 TAB) DAYS 2-5 Prov:DARÍO BUENROSTRO 06/21/17 Amoxicillin* (Amoxicillin*) 500 Mg Cap, 500 MG PO BID for 5 Days, CAP Prov:DARÍO BUENROSTRO 06/21/17 Ibuprofen* (Motrin*) 600 Mg Tab, 600 MG PO Q6, #30 TAB Prov:DARÍO BUENROSTRO 06/21/17 Neomycin/Polymyxin/Hydrocort* (Cortisporin* Otic) 10 Ml Susp, 4 DROP LEFT EAR QID for 7 Days, EA Prov:SERAFIN RICHARDS MD 01/09/17 Ibuprofen* (Motrin*) 600 Mg Tab, 600 MG PO Q8 for 5 Days, #15 TAB Prov:SERAFIN RICHARDS MD 01/09/17 Amoxicillin* (Amoxicillin*) 500 Mg Cap, 500 MG PO TID for 10 Days, CAP Prov:SERAFIN RICHARDS MD 01/09/17 Reported Medications Omeprazole* (Omeprazole*) 40 Mg Capsule.dr, 40 MG PO DAILY, #30 CAP 11/11/16 Allergies Allergies: Coded Allergies: No Known Allergy (Unverified , 11/06/17) PMhx/Soc History of Surgery: Yes (cholecystectomy) Anesthesia Reaction: No Hx Neurological Disorder: No Hx Respiratory Disorders: No Hx Cardiac Disorders: No Hx Psychiatric Problems: No Hx Miscellaneous Medical Probl: No Hx Alcohol Use: No Hx Substance Use: No Hx Tobacco Use: No Physical Exam Vitals Vital Signs Date Temp Pulse Resp B/P (MAP) Pulse Ox O2 O2 Flow FiO2 Time Delivery Rate 10/29/18 98.0 90 18 148/93 100 12:19 (111) Physical Exam Const: No acute distress Head: Atraumatic Eyes: Normal Conjunctiva ENT: Normal External Ears, Nose and Mouth. Neck: Full range of motion. No meningismus. Resp: Clear to auscultation bilaterally Cardio: Regular rate and rhythm, no murmurs Abd: Soft, non tender, non distended. Normal bowel sounds Skin: No petechiae or rashes Back: No midline or flank tenderness Ext: No cyanosis, or edema Neur: Awake and alert Psych: Normal Mood and Affect Result Diagram: 10/29/18 1403 Results 24 hrs Laboratory Tests Test 10/29/18 14:03 10/29/18 14:04 10/29/18 14:07 White Blood Count 13.2 10^3/ul Red Blood Count 5.14 10^6/ul Hemoglobin 9.4 g/dl Hematocrit 34.9 % Mean Corpuscular Volume 67.9 fl Mean Corpuscular Hemoglobin 18.3 pg Mean Corpuscular 26.9 g/dl Hemoglobin Concent Red Cell Distribution Width 18.2 % Platelet Count 416 10^3/UL Mean Platelet Volume 10.7 fl Immature Granulocytes % 0.700 % Neutrophils % 59.4 % Lymphocytes % 29.8 % Monocytes % 6.4 % Eosinophils % 3.2 % Basophils % 0.5 % Nucleated Red Blood Cells % 0.0 /100WBC Immature Granulocytes # 0.090 10^3/ul Neutrophils # 7.9 10^3/ul Lymphocytes # 3.9 10^3/ul Monocytes # 0.8 10^3/ul Eosinophils # 0.4 10^3/ul Basophils # 0.1 10^3/ul Nucleated Red Blood Cells # 0.0 10^3/ul POC Beta HCG, Qualitative NEGATIVE Bedside Urine pH (LAB) 6.0 Bedside Urine Protein (LAB) Trace Bedside Urine Glucose (UA) Negative Bedside Urine Ketones (LAB) Negative Bedside Urine Blood 3+ Bedside Urine Nitrite (LAB) Negative Bedside Urine Leukocyte Esterase Negative (L Procedures/MDM Vital signs stable, Physical exam unremarkable, abdomen soft, nontender. Patient hemodynamically stable. Differential diagnosis include but not limited to: , ovarian cyst, fibroids, endometriosis, malignancy, dysfunctional bleeding, hematologic condition. Low suspicion for PID, no signs of hypovolemic shock. Pertinent Data: test: Negative Urine: No infection Labs: CBC: normal Physical examination and clinical presentation consistent most likely with dysfunctional uterine bleeding. During the ED course the patient remained stable, no new complaints. The patient received treatment with Zofran presenting overall improvement of the symptoms. Results and clinical impression discussed with patient who agrees with management. The patient is stable to be treated outpatient and will be discharged home with a Rx for Provera, some side effects of prescribed medications (headache, rash, nausea, vomiting, diarrhea, drowsiness, habituation, bleeding, hypertension, interactions with other medications) were reviewed. The patient was instructed to follow up with the primary care provider in the next 48h. If symptoms persist, worsen or new symptoms develop, then patient should return to the ED immediately. Instructions explained and given directly by me to the patient with acknowledgment and demonstrated understanding. Disclaimer: Inadvertent spelling and grammatical errors are likely due to EHR/dictation software use and do not reflect on the overall quality of patient care. Also, please note that the electronic time recorded on this note does not necessarily reflect the actual time of the patient encounter. Departure Diagnosis: Primary Impression: Abnormal uterine bleeding Additional Impression: Anxiety Condition: Stable Additional Instructions: Muchas ian por [facility] para salas servicio. Esperamos que en salas visita a la terrell de emergencia salas problema medico haya sido solucionado y que se sienta mucho mejor. Para estar seguros que salas mejoria sigue en proceso, le pedimos el favor de hacer david thomas de seguimiento medico con salas doctor primario en los proximos 2-4 mayen. Lleve con usted estos documentos y las medicinas recetadas. Si jinny sintomas empeoran, NO SE ESPERE, por favor regrese a terrell de emergencia INMEDIATAMENTE. En shae que usted no tenga un mdico de atencin primaria: Llame al mdico o clnica comunitaria de referencia que aparece abajo víctor las horas de consultorio para hacer david thomas para que le vean. CLINICAS: [facility] [phone] [address] [facility] [phone] [facility] [phone] [facility] [facility] [phone] [address] [facility]. [place] [phone] [address] [facility] [phone] SERAFIN MARTINEZ MD Oct 29, 2018 13:47
== END 2018-10-29 16:13 | disposition home or self-care (01) ==
LOC: FTE 12:14
DX: N93.9 Abnormal uterine and vaginal bleeding, unspecified (principal); F41.9 Anxiety disorder, unspecified; R10.2 Pelvic and perineal pain; E03.9 Hypothyroidism, unspecified
CPT/HCPCS: 36415; 76830; 76856; 81003; 81025; 85025; Z7502